=== PATIENT | female | born 1985 | race Hispanic/Latino ===

== ENCOUNTER 2019-11-18 08:44 | Outpatient (CLI) | payer OTHER ==
--- NOTE | 2019-11-18 10:05 | ULT ---
ULTRASOUND OBSTETRICAL COMPLETE: HISTORY: A 34-year-old female. Evaluate anatomy. FINDINGS: number: Farr. lie: Transverse, with head to the maternal left. Maternal cervix: 4.5 cm in length and closed. Placenta: Anterior. No placenta previa. Amniotic fluid volume: Subjectively within normal limits. MARIO not measured. heart rate: 126 b.p.m. The following anatomy is visualized, with no evidence of anomalies: Head, lateral ventricles, cerebellum, nose and lips, spine, upper limbs, lower limbs, four chamber he art, umbilical cord, cord insertion, stomach, kidneys, and bladder. biometry: Head circumference (HC): 16.9 cm 19 w 4 d Biparietal diameter (BPD): 4.5 cm 19 w 4 d Abdominal circumference (AC): 14.4 cm 19 w 5 d Femur length (FL): 3.2 cm 20 w 1 d Average ultrasound age (AUA): 19 weeks 6 days. Estimated date of delivery (VIVIANA): 04/05/2020. Last menstrual period (LMP): 06/30/2019. Gestational age by LMP: 20 w 1 d. Estimated weight (EFW): 314 g +/- 46 g (0 lb 11oz +/- 2 oz). IMPRESSION: 1. Live second trimester intrauterine gestation. 2. Estimated gestational age of 19 weeks, 6 days. 3. Transverse lie. 4. No anatomical abnormalities. jn [] POS: [facility]
== END 2019-11-18 08:45 | disposition home or self-care (01) ==
LOC: BICULT 08:44
PROVIDERS: ATTEND Family Medicine
DX: Z34.82 Encounter for supervision of other normal pregnancy, second trimester (principal); Z3A.19 19 weeks gestation of pregnancy; O32.2XX0 Maternal care for transverse and oblique lie, not applicable or unspecified
CPT/HCPCS: 76805

== ENCOUNTER 2020-03-22 19:15 | Inpatient (IN) | payer MEDICAID, OTHER, SELFPAY ==
[2020-03-29] MEDS ORDERED: Bupivacaine HCl 0.5%/Epinephrine 1:200,000/PF 30 ml Vial ONE (09:20)
[2020-03-29 22:03] VITALS: BMI 35.2
[2020-03-29] MEDS: Lactated Ringer's 1,000 ML IV SCH (22:10)
[2020-03-29] MEDS ORDERED: Ibuprofen 800 MG TAB PO PRN (22:13)
[2020-03-29] MEDS ORDERED: Misoprostol 200 MCG TAB PR PRN (22:13)
[2020-03-29] MEDS ORDERED: Butorphanol Tartrate 1 MG/ML VIAL SLOW IVP PRN (22:13)
[2020-03-29] MEDS ORDERED: Diphenoxylate HCl/Atropine Tablet PO PRN (22:13)
[2020-03-29] MEDS ORDERED: Ondansetron PF 4 MG/2 ML Vial IVP PRN (22:13)
[2020-03-29] MEDS ORDERED: NS / Oxytocin 40 units/1000ml 1,000 ML IV PRN (22:13)
[2020-03-29] MEDS ORDERED: NS w/ Oxytocin 10 units 500 ML IV SCH ×2 (22:13)
[2020-03-29] MEDS ORDERED: hydrALAZINE 20 MG/ML VIAL SLOW IVP PRN (22:13)
[2020-03-29] MEDS ORDERED: Carboprost 250 MCG/ML AMP IM PRN (22:13)
[2020-03-29] MEDS ORDERED: Promethazine HCl 25 MG/ML VIAL IM PRN (22:13)
[2020-03-29] MEDS ORDERED: Methylergonovine 0.2 MG/ML VIAL IM PRN (22:13)
[2020-03-29] MEDS ORDERED: Lidocaine 1% (PF) 30 ML VIAL SC PRN (22:13)
[2020-03-29] MEDS ORDERED: HYDROcodone/Acetaminophen 5/325 mg Tablet PO PRN (22:13)
[2020-03-29] MEDS: Misoprostol 100 MCG TAB PO SCH (22:42)
[2020-03-29 22:55] LABS: Mean Corpuscular HGB CONC 34.2 g/dL (32.0-36.0); Mean Corpuscular Hemoglobin 29.6 pg (27.0-31.0); Mean Corpuscular Volume 86.4 fL (78.0-98.0); Mean Platelet Volume 9.6 fL (7.4-10.4); Platelet Count 235 thou/uL (130-400); RBC Distribution Width 14.4 % (11.5-14.5); Red Blood Cell (RBC) Count 4.39 mill/uL (4.20-5.40); White Blood Cell (WBC) Count 9.5 thou/uL (4.8-10.8)
[2020-03-29 23:15] LABS: Glucose 112 mg/dL (70-105)
[2020-03-29 23:32] LABS: HBSAg Index 0.16 S/CO (0-0.99); Hep B Surf Ag Non-Reactive S/CO (NonReactive); Syphilis Antibody Nonreactive (Nonreactive); Syphilis Antibody Index 0.03 S/CO (<1.00 Non-Reactive)
[2020-03-30] MEDS: Misoprostol 100 MCG TAB PO SCH ×3 (02:02→09:22)
[2020-03-30] MEDS: Lactated Ringer's 1,000 ML IV SCH ×2 (05:14→10:25)
[2020-03-30] MEDS ORDERED: Fentanyl 4 mcg/Bup 0.1% Cadd 100 ML ONE (09:07)
[2020-03-30] MEDS ORDERED: diphenhydrAMINE 50 MG/ML VIAL IVP PRN (12:47)
[2020-03-30] MEDS ORDERED: Bupivacaine 0.25% 10 ML VIAL EPIDURAL PRN (12:47)
[2020-03-30] MEDS ORDERED: Promethazine HCl 25 MG SUPP PR PRN (12:47)
[2020-03-30] MEDS ORDERED: Ondansetron PF 4 MG/2 ML Vial IVP PRN ×2 (12:47→16:23)
[2020-03-30] MEDS ORDERED: diphenhydrAMINE 50 MG/ML VIAL IM PRN (12:47)
[2020-03-30] MEDS ORDERED: diphenhydrAMINE 25 MG CAP PO PRN ×2 (12:47→16:23)
[2020-03-30] MEDS ORDERED: Naloxone HCl 0.4 mg/ml Vial IVP PRN ×2 (12:47)
[2020-03-30] MEDS ORDERED: Promethazine HCl 25 MG/ML VIAL IM PRN (12:47)
[2020-03-30] MEDS ORDERED: Fentanyl 5 mcg/Bupivacaine 0.075% Cassette 100 ML EPIDURAL SCH (13:00)
[2020-03-30] MEDS ORDERED: Communication Order-Pharmacy FS PRN ×2 (13:00)
[2020-03-30] MEDS ORDERED: DISCONTINUE ALL PREVIOUS NARCOTICS FS SCH (14:45)
[2020-03-30] MEDS ORDERED: Bupivacaine 0.5% 20 ML, fentaNYL Citrate/PF 400 MCG in Sodium Chloride 0.9% 72 ML EPIDURAL SCH (14:45)
[2020-03-30] MEDS ORDERED: Benzocaine-Menthol 82.5 ML CAN TOP PRN (16:23)
[2020-03-30] MEDS ORDERED: HYDROcodone/Acetaminophen 5/325 mg Tablet PO PRN ×2 (16:23)
[2020-03-30] MEDS ORDERED: Lanolin Ointment 7 GM TUBE TOP PRN (16:23)
[2020-03-30] MEDS ORDERED: NS / Oxytocin 40 units/1000ml 1,000 ML IV SCH (16:23)
[2020-03-30] MEDS ORDERED: Milk Of Magnesia 30 ML UDCUP PO PRN (16:23)
[2020-03-30] MEDS ORDERED: hydrALAZINE 20 MG/ML VIAL SLOW IVP PRN (16:23)
[2020-03-30] MEDS ORDERED: Bisacodyl 10 MG SUPP PR PRN (16:23)
[2020-03-30] MEDS: Ibuprofen 800 MG TAB PO SCH (17:18)
[2020-03-30] MEDS: Ferrous Sulfate 325 MG TAB PO SCH (18:30)
[2020-03-30] MEDS: Docusate Calcium (SURFAK) 240 MG CAP PO SCH (22:15)
[2020-03-31] MEDS: Ibuprofen 800 MG TAB PO SCH ×3 (00:30→14:16)
[2020-03-31] MEDS: Ferrous Sulfate 325 MG TAB PO SCH ×2 (07:31→19:13)
[2020-03-31] MEDS: Docusate Calcium (SURFAK) 240 MG CAP PO SCH (08:17)
[2020-03-31] MEDS ORDERED: Adacel (T-DAP) 0.5 ML SYRINGE IM ONE (16:23)
[2020-03-31 16:56] VITALS: BP 114/59; TEMP 98.1
== END 2020-03-31 19:45 | disposition home or self-care (01) | DRG 807 ==
LOC: L&D 03-29 21:40 → 3SW 03-30 18:04
PROVIDERS: ADMIT Family Medicine; ATTEND Family Medicine
PROC: 10907ZC Drainage of Amniotic Fluid, Therapeutic from Products of Conception, Via Natural or Artificial Opening (ICD-10-PCS; 2020-03-29)
PROC: 3E0P7VZ Introduction of Hormone into Female Reproductive, Via Natural or Artificial Opening (ICD-10-PCS; 2020-03-29)
PROC: 10E0XZZ Delivery of Products of Conception, External Approach (ICD-10-PCS; principal; 2020-03-30)
PROC: 0HQ9XZZ Repair Perineum Skin, External Approach (ICD-10-PCS; 2020-03-30)
DX: O24.420 Gestational diabetes mellitus in childbirth, diet controlled (principal); Z37.0 Single live birth; Z3A.39 39 weeks gestation of pregnancy; O70.0 First degree perineal laceration during delivery
CPT/HCPCS: 36415; 36416; 51701; 82947; 85027; 86780; 86850; 86900; 86901; 87340; J0670; J2405; J2590

== ENCOUNTER 2020-03-27 06:54 | Outpatient (CLI) | payer MEDICAID, OTHER ==
[2020-03-28 12:38] LABS: SARS-CoV-2 MS2 Positive; SARS-CoV-2 N Gene Negative; SARS-CoV-2 S Gene Negative; SARS-CoV-2 orf1ab Negative
== END 2020-03-27 06:55 | disposition home or self-care (01) ==
LOC: SCSLAB 06:54
PROVIDERS: ATTEND Family Medicine
DX: Z01.812 Encounter for preprocedural laboratory examination (principal); Z11.59 Encounter for screening for other viral diseases
CPT/HCPCS: 87635; U0003